=== PATIENT | female | born 1945 | race Caucasian/White ===

== ENCOUNTER → 2023-06-29 | Outpatient (CLI) | payer MEDICARE ==
[~2023-06-29] MED LIST: ATORVASTATIN CA20 MG PO; CEPH500 PO; ELIQUIS5 M3 PO; FURO80 PO; IRON18 MG PO; METO100ER PO; PANTOPRAZOLE SO40 M2 PO; SPIRONOLACTONE50 MG PO; Vitamin C100 M1 PO
[2023-06-30 09:26] LABS: Bacterial Vaginosis PCR Negative (NEGATIVE); Candida Group, PCR NOT DETECTED (NOT DETECT); Candida glabrata-krusei, PCR NOT DETECTED (NOT DETECT)
== END | disposition home or self-care (01) ==
LOC: LAB EV 18:52 → LAB SHORT 18:52
PROVIDERS: Family Medicine
DX: B37.2 Candidiasis of skin and nail (principal)
CPT/HCPCS: 87481; 87661; 87801

== ENCOUNTER 2024-05-29 09:46 | Emergency (ER) | payer MEDICARE ==
[~2024-05-29] VITALS: Ht 167.6 cm; Wt 147.4 kg
[2024-05-29 10:04] VITALS: BP 116/76
== END 2024-05-29 13:24 | disposition home or self-care (01) ==
LOC: ER 09:46
DX: I89.0 Lymphedema, not elsewhere classified (principal); Z79.01 Long term (current) use of anticoagulants; Z79.899 Other long term (current) drug therapy; Z59.89 Other problems related to housing and economic circumstances
CPT/HCPCS: 99283

== ENCOUNTER 2024-06-08 09:18 | Inpatient (IN) | payer MEDICARE ==
[2024-06-08] VITALS (29 sets, daily range): BP systolic 62–213; BP diastolic 30–183
[~2024-06-08] VITALS: Ht 167.6 cm; Wt 141.0 kg
[~2024-06-08 09:18] MED LIST changes: +SPIR25 PO; -SPIRONOLACTONE50 MG PO
[2024-06-08] MEDS ORDERED: Clindamycin 600mg in D5W 50 ML IV ONE (09:35)
[2024-06-08] MEDS ORDERED: NS 500 ML IV SCH (09:40)
[2024-06-08] MEDS ORDERED: Ipratropium/Albuterol SulF 2.5-0.5MG/3 ML Amp INH PRN (09:45)
[2024-06-08 09:53] LABS: Base Excess Venous -0.3 mmol/L; Bicarbonate Venous 23.3 mmol/L (24.0-30.0); PCO2 Venous 47.4 mmHg (38-42); pH Blood Venous 7.34 (7.34-7.37)
[2024-06-08 10:01] LABS: Hematocrit 38.9 % (33.0-51.0); Hemoglobin 12.4 g/dL (11.5-16.0); Mean Corpuscular HGB 33.2 pg (26.0-34.0); Mean Corpuscular HGB Conc 31.9 g/dL (31.5-36.5); Mean Corpuscular Volume 104 fL (80-100); Platelet Count 140 K/mm3 (150-400); RDW Coefficient Variation 12.8 % (11.7-14.2); RDW Standard Deviation 49.4 fL (35.1-46.3); Red Blood Cell Count 3.74 M/mm3 (3.80-5.20); White Blood Cell Count 2.77 K/mm3 (4.00-11.30)
[2024-06-08 10:16] LABS: Albumin, Blood 3.1 g/dL (3.4-5.0); Albumin/Globulin Ratio 0.9 (0.8-1.8); Bilirubin, Total 1.1 mg/dL (0.1-1.0); Bun/Creatinine Ratio 19.4 (12.0-20.0); Calcium, Blood 9.2 mg/dL (8.5-10.1); Creatinine, Blood 2.17 mg/dL (0.40-1.00); Globulin, Blood 3.3 g/dL (2.2-4.0); Magnesium, Blood 2.2 mg/dL (1.6-2.4); Phosphorus, Blood 2.6 mg/dL (2.5-4.9); Potassium, Blood 4.6 mmol/L (3.5-5.5); Total Protein, Blood 6.4 g/dL (6.4-8.2)
[2024-06-08] MEDS ORDERED: NS 1,150 ML IV SCH (10:35)
[2024-06-08 10:54] LABS: Source, Urine Foley catheter
[2024-06-08 10:59] LABS: CORONAVIRUS COVID-19 AG Negative (NEGATIVE); INFLUENZA A AG Negative (NEGATIVE); INFLUENZA B AG Negative (NEGATIVE)
[2024-06-08 11:03] LABS: BAND PERCENT MAN 63 % (0-8); BASOPHILS PERCENT MAN 0 % (0-2); EOSINOPHILS PERCENT MAN 0 % (0-6); LYMPHOCYTES ABSOLUTE MAN 0.08 K/mm3 (0.84-5.20); LYMPHOCYTES PERCENT MAN 3 % (21-46); METAMYELOCYTE PERCENT MAN 11 % (0-0); MONOCYTES ABSOLUTE MAN 0.05 K/mm3 (0.16-1.47); MONOCYTES PERCENT MAN 2 % (4-13); NEUTROPHILS ABSOLUTE MAN 2.32 K/mm3 (1.96-9.15); SEG NEUTROPHILS PERCENT MAN 21 % (41-73); TOTAL CELLS COUNTED 100
[2024-06-08 11:06] LABS: Bilirubin, Urine Neg (Neg); Blood, Urine 1+ (Neg); Glucose Qualitative, Urine Neg (Neg); Ketones, Urine Neg (Neg); Leukocyte Esterase, Urine 1+ (Neg); Nitrite, Urine Neg (Neg); Protein, Urine 2+ (Neg); Specific Gravity, Urine 1.015 (1.003-1.022); Urobilinogen, Urine NORM (Normal)
[2024-06-08] MEDS ORDERED: KLOR-CON M1010 MEQ PO (11:14)
[2024-06-08 11:21] LABS: Appearance, Urine Hazy (Clear); Bacteria Few /hpf; Color, Urine Yellow (P-Yellow); Red Blood Cells, Urine 0-2 /hpf (0-2); Squamous Epithelial Cells Mod /hpf (Few)
[2024-06-08] MEDS ORDERED: FLU VACC TS2024-25(6MOS UP)/PF 45 MCG/0.5 ML SYRINGE IM PRN (11:35)
[2024-06-08] MEDS ORDERED: Vancomycin HCL 2,000 MG in NS 500 ML IV ONE (11:45)
[2024-06-08] MEDS ORDERED: Piperacillin/Tazobactam Sod 3.375 GM in NS 100 ML IV SCH (12:00)
[2024-06-08] MEDS ORDERED: Piperacillin/Tazobactam Sod 2.25 GM in NS 50 ML IV SCH (12:00)
[2024-06-08] MEDS ORDERED: Methyl Salicylate/Menth/Camph 57 GM TUBE TOP PRN (13:10)
[2024-06-08] MEDS ORDERED: Vasopressin 20 UNITS in NS 100 ML IV SCH (13:45)
--- NOTE | 2024-06-08 15:00 | NUR ---
ARRIVAL TO ICU PT BROUGHT TO ICU 14 AT THIS TIME. PT RECEIVING LEVOPHED 15MCG/MIN AND VASOPRESSIN 0.04UNITS/MIN. SHE IS A&OX3. REPETITIVE AT TIMES. SHE IS ON 4L NC WITH SPO2 >93%. PT APPEARS TO HAVE INCREASED WORK OF BREATHING BUT PT DENIES SOB. C/O CHRONIC L SHOULDER PAIN. AFIB ON MONITOR WITH RATE IN 90S-100S. MAP LABILE BETWEEN 40S-60S. STRONG RADIAL PULSES. DOPPLER PEDAL PULSES. LEGS ARE EDEMATOUS, REDDENED. BILAT TOES COOL TO TOUCH WITH DUSKY APPEARANCE. PT STS SHE HAD A PRIOR HOSPITALIZATION YEARS AGO FOR CELLULITIS. PT HAS REDDENED AREAS ACROSS ABDOMEN, BACK AND THIGHS. AREA OUTLINED. PHOTOS IN CHART. BED IN LOW POSITION, CALL LIGHT WITHIN REACH.
[2024-06-08] MEDS ORDERED: Acetaminophen325 M1 PO (17:04)
[2024-06-08] MEDS ORDERED: ALEVAZOL56.7 G1 TOP (17:07)
[2024-06-08] MEDS ORDERED: BISA10S PR (17:07)
[2024-06-08] MEDS ORDERED: HYDROmorphone HCl/Pf 1MG SYR ONE (17:28)
[2024-06-08] MEDS ORDERED: HYDROmorphone HCl/Pf 1MG SYR IV ONE (17:35)
[2024-06-08] MEDS ORDERED: Acetaminophen 500 MG Tab PO PRN (18:10)
[2024-06-08] MEDS ORDERED: NS 250 ML IV PRN (18:15)
[2024-06-08] MEDS ORDERED: Vancomycin HCL 1,750 MG in NS 500 ML IV ONE (18:25)
[2024-06-08] MEDS ORDERED: Lactobacil 2-S.Thermo-Bifido 1 1 Cap PO SCH (21:00)
[2024-06-08] MEDS ORDERED: Apixaban 5 MG Tab PO SCH (21:00)
--- NOTE | 2024-06-08 22:00 | NUR ---
ASSUMED CARE AT 1900 PT LAYING IN BED SLEEPING AT SHIFT CHANGE. SHE IS A/O X3-4; SHE EASILY FALLS ASLEEP DURING CONVERSATION BUT IS ORIENTED TO SELF, PLACE, AND FOLLOWS DIRECTIONS; SHE IS SLOW TO RESPOND AND SOFT SPOKEN. SPO2 >95% ON 3L NC. AFIB NOTED WITH RATE 80-100'S; BP SUPPORTED WITH LEVOPHED INFUSING AT 21MCG/MIN AND VASOPRESSIN INFUSING AT 0.04UNITS/MIN. MINIMAL APPETITE. NIXON IN PLACE AND DRAINING TO GRAVITY. RLE VERY LARGE, RED AND HOT TO TOUCH. PT TURNS ARE PAINFUL. CENTRAL LINE TO RIJ PATENT WITH DRESSING C/D/I. SEE SHIFT ASSESSMENT FOR FULL ASSESSMENT.
[2024-06-09] VITALS (75 sets, daily range): BP systolic 61–203; BP diastolic 17–171
[2024-06-09] MEDS ORDERED: FentaNYL Citrate 50 MCG/ML 2 ML Injection IV PRN (02:55)
[2024-06-09] MEDS ORDERED: LIDO700A20 TOP (03:01)
[2024-06-09] MEDS ORDERED: DULCOLAX400 MG/5 M PO (03:12)
[2024-06-09] MEDS ORDERED: MIRALAX17 GM PO (03:13)
[2024-06-09] MEDS ORDERED: NYSTRIT TOP (03:15)
[2024-06-09] MEDS ORDERED: TORSE20 PO (03:17)
[2024-06-09 04:19] LABS: Hematocrit 39.8 % (33.0-51.0); Hemoglobin 12.8 g/dL (11.5-16.0); Mean Corpuscular HGB 33.2 pg (26.0-34.0); Mean Corpuscular HGB Conc 32.2 g/dL (31.5-36.5); Mean Corpuscular Volume 103 fL (80-100); Mean Platelet Volume 11.9 fL (9.1-12.4); Platelet Count 123 K/mm3 (150-400); RDW Coefficient Variation 12.9 % (11.7-14.2); RDW Standard Deviation 48.9 fL (35.1-46.3); Red Blood Cell Count 3.86 M/mm3 (3.80-5.20); White Blood Cell Count 7.78 K/mm3 (4.00-11.30)
[2024-06-09 04:34] LABS: International Normalized Ratio 1.35; Prothrombin Time Results 14.1 Sec (9.7-11.5)
[2024-06-09 04:47] LABS: Alanine Aminotransfer (ALT/SGP 32 U/L (12-78); Albumin, Blood 2.8 g/dL (3.4-5.0); Albumin/Globulin Ratio 0.9 (0.8-1.8); Alk Phos 40 U/L (50-136); Anion Gap 15 mmol/L (3-11); Aspartate Aminotrans (AST/SGOT 53 U/L (12-37); Bilirubin, Total 1.1 mg/dL (0.1-1.0); Blood Urea Nitrogen 48 mg/dL (8-24); Bun/Creatinine Ratio 25.5 (12.0-20.0); CO2, Blood 23 mmol/L (21-32); Calcium, Blood 8.1 mg/dL (8.5-10.1); Chloride, Blood 101 mmol/L (98-108); Creatinine, Blood 1.88 mg/dL (0.40-1.00); Globulin, Blood 3.1 g/dL (2.2-4.0); Glomerular Filtration Rate 27 (60-); Glucose, Blood 90 mg/dL (70-99); Magnesium, Blood 1.8 mg/dL (1.6-2.4); Phosphorus, Blood 4.8 mg/dL (2.5-4.9); Potassium, Blood 5.1 mmol/L (3.5-5.5); Sodium, Blood 134 mmol/L (136-145); Total Protein, Blood 5.9 g/dL (6.4-8.2); Vancomycin, Random 21.4 ug/mL
[2024-06-09 05:17] LABS: BAND PERCENT MAN 44 % (0-8); BASOPHILS PERCENT MAN 0 % (0-2); EOSINOPHILS PERCENT MAN 0 % (0-6); METAMYELOCYTE ABSOLUTE MAN 0.46 K/mm3 (0.00-0.00); METAMYELOCYTE PERCENT MAN 6 % (0-0); MONOCYTES ABSOLUTE MAN 0.46 K/mm3 (0.16-1.47); MONOCYTES PERCENT MAN 6 % (4-13); MYELOCYTE ABSOLUTE MAN 0.38 K/mm3 (0.00-0.00); MYELOCYTE PERCENT MAN 5 % (0-0); NEUTROPHILS ABSOLUTE MAN 6.45 K/mm3 (1.96-9.15); SEG NEUTROPHILS PERCENT MAN 39 % (41-73); TOTAL CELLS COUNTED 100
--- NOTE | 2024-06-09 06:39 | NUR ---
END OF SHIFT SUMMARY PT DID NOT SLEEP WELL DURING THE NIGHT. SHE CONT TO BE A/O X3-4; SHE DID NOT USE HER CALL LIGHT AND WOULD CRY OUT AT TIMES. PAIN CHALLENGING TO CONTROL; CALL MADE TO HOSPITALIST WHO PROVIDED ORDERS FOR PRN FENTANYL; PRN HELPFUL FOR SHOULDER AND HIP PAIN. MAX TEMP 101; TYLENOL GIVEN AND HELPFUL. SPO2 >90% ON 4-5L EITHER NC OR OXYMASK (USED WHILE SLEEPING). HR 90-110. SBP AND MAP LABILE; LEVOPHED HIGH 22MCG/MIN OR LOW 10MCG/MIN; VASOPRESSIN INFUSING AT 0.04UNITS/MIN. TOLERATING SMALL SIPS OF WATER. NIXON IN PLACE AND DRAINING TO GRAVITY. NO CHANGES TO WOUNDS. RIJ PATENT WITH DRESSING C/D/I. WILL REPORT TO AM RN WHEN AVAILALBE.
[2024-06-09] MEDS ORDERED: Enoxaparin 40 MG/0.4 ML SYR SC SCH (09:00)
[2024-06-09] MEDS ORDERED: Arginine/Glutamine/Calcium Hmb 1 Packet PO SCH (09:00)
[2024-06-09] MEDS ORDERED: Metoprolol Succinate 50 MG TABCR PO SCH (09:00)
[2024-06-09] MEDS ORDERED: Mag Sulfate 1 GM/D5% 100ML 100 ML IV STA (09:04)
[2024-06-09] MEDS ORDERED: NS 1,000 ML IV SCH (09:05)
--- NOTE | 2024-06-09 17:27 | NUR ---
SHIFT SUMMARY NO ACUTE CHANGES THIS SHIFT. PT HAS REMAINED AWAKE AND ALERT MOST OF THIS SHIFT. PT AWAKENS EASILY TO VERBAL STIMULI WHEN RESTING. PT IS ABLE TO ANSWER MOST QUESTIONS APPROPRIATELY. PT IS FORGETFUL AT TIMES NEEDING REDIRECTION. PT WITH POOR APPETITE THIS SHIFT, BUT IS ABLE TO TAKE PO MEDS AND SMALL SIPS OF FLUIDS. CENTRAL LINE TO RIJ C/D/I. PT BP REMAINS HYPOTENSIVE AND LABILE. LEVOPHED INFUSING AT 24 MCG/MIN AND VASOPRESSIN 0.04 UNITS/MIN. NS INFUSING AT 125 ML/HR. NIXON REMAINS IN PLACE WITH DARK YELLOW URINE OUPUT NOTED. PT WITH MULTIPLE INCONTINENT BM'S THIS SHIFT. RASH/CELLULITIS TO ABDOMEN AND RIGHT LEG REMAINS UNCHANGED. PT WITH DIFFUSE EXCORIATIONS TO GROIN/LUIS AREA AND COCCYX, BUT NO STAGEABLE PRESSURE INJURY NOTED AT THIS TIME. WOUND PHOTOS IN CHART. DR CHANDLER AWARE. NO FAMILY CALLS OR VISITS THIS SHIFT. WILL CONTINUE TO MONITOR AND REPORT OFF TO ONCOMING RN.
[2024-06-09] MEDS ORDERED: NS 500 ML IV SCH (18:00)
[2024-06-09 18:44] LABS: Base Excess Venous -4.6 mmol/L; Bicarbonate Venous 20.3 mmol/L (24.0-30.0); PCO2 Venous 48.4 mmHg (38-42); pH Blood Venous 7.27 (7.34-7.37)
[2024-06-09] MEDS ORDERED: [UNRECOGNIZED DRUG - OTHER] TOP (20:26)
[2024-06-09] MEDS ORDERED: LOPE2C PO (20:37)
[2024-06-09] MEDS ORDERED: Ondansetron HCl 2 MG / ML 2ML Vial IV PRN (20:55)
[2024-06-10] VITALS (77 sets, daily range): BP systolic 74–128; BP diastolic 42–92
[2024-06-10 03:20] LABS: Hematocrit 36.7 % (33.0-51.0); Mean Corpuscular HGB 33.8 pg (26.0-34.0); Mean Corpuscular HGB Conc 32.7 g/dL (31.5-36.5); Mean Corpuscular Volume 103 fL (80-100); NRBC ABSOLUTE 0.02 K/mm3 (0.00-0.02); NRBC Auto 0.1 /100 WBC (0.0-0.2); Platelet Count 105 K/mm3 (150-400); RDW Standard Deviation 49.4 fL (35.1-46.3); Red Blood Cell Count 3.55 M/mm3 (3.80-5.20)
[2024-06-10 03:46] LABS: Albumin, Blood 2.4 g/dL (3.4-5.0); Albumin/Globulin Ratio 0.8 (0.8-1.8); Bilirubin, Total 1.4 mg/dL (0.1-1.0); Bun/Creatinine Ratio 31.1 (12.0-20.0); Calcium, Blood 7.8 mg/dL (8.5-10.1); Creatinine, Blood 1.67 mg/dL (0.40-1.00); Globulin, Blood 3.1 g/dL (2.2-4.0); Magnesium, Blood 2.2 mg/dL (1.6-2.4); Potassium, Blood 4.6 mmol/L (3.5-5.5); Total Protein, Blood 5.5 g/dL (6.4-8.2)
[2024-06-10 03:52] LABS: BAND PERCENT MAN 27 % (0-8); BASOPHILS PERCENT MAN 0 % (0-2); EOSINOPHILS PERCENT MAN 0 % (0-6); LYMPHOCYTES % ATYPICAL MANUAL 1 % (0-0); LYMPHOCYTES ABSOLUTE MAN 0.48 K/mm3 (0.84-5.20); LYMPHOCYTES PERCENT MAN 2 % (21-46); METAMYELOCYTE ABSOLUTE MAN 0.16 K/mm3 (0.00-0.00); METAMYELOCYTE PERCENT MAN 1 % (0-0); MONOCYTES ABSOLUTE MAN 0.48 K/mm3 (0.16-1.47); MONOCYTES PERCENT MAN 3 % (4-13); NEUTROPHILS ABSOLUTE MAN 15.15 K/mm3 (1.96-9.15); SEG NEUTROPHILS PERCENT MAN 66 % (41-73); TOTAL CELLS COUNTED 100
--- NOTE | 2024-06-10 05:14 | NUR ---
SHIFT SUMMARY PT A/OX2-3, INTERMITTENT CONFUSION. ANSWERS MOST QUESTIONS APPROPRIATLY. MUMBLED SPEECH. ON 4L NC, SATS > 94%. L/S CLEAR T/O. ON MATERIAL FLOW ANALYST, AFIB W/ HR 110-120'S. DENIES CP/PRESSURE. BP SOFT AND LABILE, LEVO AND VASO INFUSING TO RIJ. MAPS IN THE 60'S. NIXON DRAINING TO GRAVITY. BM X2 THIS SHIFT, STOOL SAMPLE SENT TO LAB. CHG BATH DONE. PT HAS BEEN PAINFUL THIS SHIFT, TYLENOL AND FENT PUSHES GIVEN PER EMAR W/ SOME RELIEF. NO ACUTE EVENTS THIS SHIFT. CALL LIGHT IN REACH.
[2024-06-10] MEDS ORDERED: NS 1,000 ML IV SCH (07:00)
[2024-06-10] MEDS ORDERED: Vancomycin HCL 1,500 MG in NS 250 ML IV SCH (07:00)
[2024-06-10 07:10] LABS: Vancomycin, Random 12.2 ug/mL
[2024-06-10 08:18] LABS: Base Excess Venous -6.9 mmol/L; Bicarbonate Venous 18.5 mmol/L (24.0-30.0); PCO2 Venous 51.6 mmHg (38-42); pH Blood Venous 7.22 (7.34-7.37)
[2024-06-10 09:00] LABS: Albumin, Blood 2.4 g/dL (3.4-5.0); Anion Gap 12 mmol/L (3-11); Blood Urea Nitrogen 48 mg/dL (8-24); Bun/Creatinine Ratio 31.2 (12.0-20.0); CO2, Blood 21 mmol/L (21-32); Calcium, Blood 8.1 mg/dL (8.5-10.1); Chloride, Blood 107 mmol/L (98-108); Creatinine, Blood 1.54 mg/dL (0.40-1.00); Glomerular Filtration Rate 34 (60-); Glucose, Blood 72 mg/dL (70-99); Phosphorus, Blood 4.6 mg/dL (2.5-4.9); Potassium, Blood 4.4 mmol/L (3.5-5.5); Sodium, Blood 136 mmol/L (136-145)
[2024-06-10 12:00] LABS: C DIFFICILE DNA NEGATIVE (Negative)
[2024-06-10] MEDS ORDERED: Piperacillin/Tazobactam Sod 3.375 GM in NS 100 ML IV SCH (12:00)
[2024-06-10 14:10] LABS: Base Excess Venous -6.7 mmol/L; Bicarbonate Venous 19.1 mmol/L (24.0-30.0); PCO2 Venous 43.1 mmHg (38-42); pH Blood Venous 7.28 (7.34-7.37)
[2024-06-10 14:13] LABS: Albumin, Blood 2.5 g/dL (3.4-5.0); Anion Gap 15 mmol/L (3-11); Blood Urea Nitrogen 48 mg/dL (8-24); Bun/Creatinine Ratio 36.1 (12.0-20.0); CO2, Blood 18 mmol/L (21-32); Calcium, Blood 8.3 mg/dL (8.5-10.1); Chloride, Blood 108 mmol/L (98-108); Creatinine, Blood 1.33 mg/dL (0.40-1.00); Glomerular Filtration Rate 41 (60-); Glucose, Blood 72 mg/dL (70-99); Phosphorus, Blood 4.4 mg/dL (2.5-4.9); Potassium, Blood 4.3 mmol/L (3.5-5.5); Sodium, Blood 137 mmol/L (136-145)
--- NOTE | 2024-06-10 17:22 | NUR ---
SHIFT SUMMARY PT HAS REMAINED ON BIPAP MOST OF THIS SHIFT. PT AWAKENS EASILY TO VERBAL STIMULI. PT IS ABLE TO ANSWER MOST QUESTIONS, BUT GETS SOB EASILY WHEN SPEAKING. PT DROWSEY THIS AFTERNOON. PT NPO DUE TO INCREASED SOB. BIPAP SETTINGS 02/19, FIO2 30%. CENTRAL LINE TO RIJ C/D/I. LEVOPHED INFUSING AT 26 MCG/MIN, NS 125 ML/HR, AND NS TKO. VASOPRESSIN ON STANDBY PER DR CHANDLER. NIXON TEMP PROBE REMAINS IN PLACE WITH YELLOW URINE OUTPUT NOTED. WOUNDS REMAIN UNCHANGED. HR REMAINS AFIB 110-120'S. BP LABILE. NO FAMILY AT BEDSIDE. PT SUSHANT MCMANUS UPDATED VIA PHONE. WILL CONTINUE TO MONITOR AND REPORT OFF TO ONCOMING RN.
[2024-06-10 18:19] LABS: Base Excess Venous -5.7 mmol/L; Bicarbonate Venous 19.8 mmol/L (24.0-30.0); PCO2 Venous 38.8 mmHg (38-42); pH Blood Venous 7.33 (7.34-7.37)
[2024-06-10 18:51] LABS: Albumin, Blood 2.3 g/dL (3.4-5.0); Anion Gap 12 mmol/L (3-11); Blood Urea Nitrogen 50 mg/dL (8-24); Bun/Creatinine Ratio 33.8 (12.0-20.0); CO2, Blood 21 mmol/L (21-32); Calcium, Blood 8.3 mg/dL (8.5-10.1); Chloride, Blood 107 mmol/L (98-108); Creatinine, Blood 1.48 mg/dL (0.40-1.00); Glomerular Filtration Rate 36 (60-); Glucose, Blood 60 mg/dL (70-99); Phosphorus, Blood 3.8 mg/dL (2.5-4.9); Sodium, Blood 136 mmol/L (136-145)
[2024-06-10] MEDS ORDERED: D5W-1/2NS 1,000 ML IV SCH (19:20)
[2024-06-11] VITALS (80 sets, daily range): BP systolic 65–133; BP diastolic 34–84
[2024-06-11 04:05] LABS: Hematocrit 35.6 % (33.0-51.0); Hemoglobin 11.7 g/dL (11.5-16.0); Mean Corpuscular HGB 33.6 pg (26.0-34.0); Mean Corpuscular HGB Conc 32.9 g/dL (31.5-36.5); Mean Corpuscular Volume 102 fL (80-100); Mean Platelet Volume 12.6 fL (9.1-12.4); NRBC ABSOLUTE 0.02 K/mm3 (0.00-0.02); NRBC Auto 0.1 /100 WBC (0.0-0.2); Platelet Count 69 K/mm3 (150-400); RDW Coefficient Variation 13.2 % (11.7-14.2); RDW Standard Deviation 48.7 fL (35.1-46.3); Red Blood Cell Count 3.48 M/mm3 (3.80-5.20); White Blood Cell Count 22.32 K/mm3 (4.00-11.30)
[2024-06-11 04:29] LABS: Albumin, Blood 2.2 g/dL (3.4-5.0); Albumin/Globulin Ratio 0.8 (0.8-1.8); BAND PERCENT MAN 5 % (0-8); BASOPHILS PERCENT MAN 0 % (0-2); Bilirubin, Total 2.1 mg/dL (0.1-1.0); Bun/Creatinine Ratio 34.3 (12.0-20.0); Calcium, Blood 7.9 mg/dL (8.5-10.1); Creatinine, Blood 1.34 mg/dL (0.40-1.00); EOSINOPHILS PERCENT MAN 0 % (0-6); Globulin, Blood 2.9 g/dL (2.2-4.0); LYMPHOCYTES ABSOLUTE MAN 0.44 K/mm3 (0.84-5.20); LYMPHOCYTES PERCENT MAN 2 % (21-46); METAMYELOCYTE ABSOLUTE MAN 0.22 K/mm3 (0.00-0.00); METAMYELOCYTE PERCENT MAN 1 % (0-0); MONOCYTES ABSOLUTE MAN 1.33 K/mm3 (0.16-1.47); MONOCYTES PERCENT MAN 6 % (4-13); NEUTROPHILS ABSOLUTE MAN 20.31 K/mm3 (1.96-9.15); Phosphorus, Blood 2.5 mg/dL (2.5-4.9); Potassium, Blood 3.6 mmol/L (3.5-5.5); SEG NEUTROPHILS PERCENT MAN 86 % (41-73); TOTAL CELLS COUNTED 100; Total Protein, Blood 5.1 g/dL (6.4-8.2)
--- NOTE | 2024-06-11 05:05 | NUR ---
SHIFT SUMMARY PT IS A/OX2, EPISODES OF CONFUSION AND HALLUCINATIONS T/O SHIFT. PROVIDER AWARE OF PTS AMS. VERBALLY REDIRECTABLE. ON BIPAP, SATS > 94%. L/S CLEAR AND DIM T/O. ON LAW SECRETARY, AFIB W/ HR OF 110-120'S, BP SOFT AND LABILE, TITRATING LEVO TO MAP GOAL OF > 65. GTT INFUSING TO RIJ. VASO HAS REMAINED OFF THIS SHIFT. NO BM'S THIS SHIFT. TEMP NIXON DRAINING TO GRAVITY W/ OK UOP. PT HAD CBG OF 60 EARLIER THIS SHIFT, PROVIDER NOTIFIED AND FLUIDS WERE SWITCHED TO D5 1/2 NS AT 150 ML/H. CBG WAS CHECKED LATER AND HAD A RESULT OF 61. FLUIDS WERE INCREASED TO 200 ML/H W/ IMPROVEMENT IN BLOOD SUGAR > 70. NO OTHER ACUTE EVENTS THIS SHIFT.
[2024-06-11] MEDS ORDERED: Potassium Phosphate Dibasic 15 MM in Dextrose 5% 250 ML IV STA (07:06)
--- NOTE | 2024-06-11 07:31 | NUR ---
[place] of care: Alert & oriented to self. In atrial fib in 120s on monitor. Levo gtt infusing at 14 mcgs/min. Weaned from BiPAP to 4L NC per Dr. Almeida so that he can discuss goals of care. Redness/swelling to bilat LE. D51/2 NS infusing at 200 cc/hr. Will continue to monitor.
[2024-06-11] MEDS ORDERED: Furosemide 10 MG / ML 2ML Vial IV SCH (08:00)
[2024-06-11] MEDS ORDERED: Morphine Sulfate 10 MG/ML 1MLSYR IV PRN (10:50)
[2024-06-11] MEDS ORDERED: NS 250 ML IV PRN (11:50)
[2024-06-11] MEDS ORDERED: Lactated Ringer's 500 ML IV SCH (13:50)
[2024-06-11] MEDS ORDERED: DEXTROSE 5% IV SCH (16:00)
[2024-06-11] MEDS ORDERED: PENICILLIN POTASSIUM IV SCH (16:00)
[2024-06-11] MEDS ORDERED: Hydrocortisone Sod Succinate 100 MG Vial IV SCH (16:00)
--- NOTE | 2024-06-11 17:15 | NUR ---
DISCUSSED CASE WITH BEDSIDE RN AND DR. CHANDLER. DR. CHANDLER HAD ATTEMPTED TO CONTACT FAMILY. POOR PROGNOSIS AND WILL CONTINUE GOALS OF CARE CONVERSATION AND PROVIDE SUPPORT NEEDED.
--- NOTE | 2024-06-11 17:25 | NUR ---
Called Dr. Almeida at 17:07 - blood glucose is 158 - D51/2NS gtt currently infusing at 125cc/hr - left a message asking if he'd like to titrate this down. Will await call back.
[2024-06-12] VITALS (63 sets, daily range): BP systolic 72–135; BP diastolic 47–79
[2024-06-12 03:59] LABS: Hematocrit 35.4 % (33.0-51.0); Hemoglobin 11.5 g/dL (11.5-16.0); Mean Corpuscular HGB 33.1 pg (26.0-34.0); Mean Corpuscular HGB Conc 32.5 g/dL (31.5-36.5); Mean Corpuscular Volume 102 fL (80-100); RDW Coefficient Variation 13.4 % (11.7-14.2); RDW Standard Deviation 49.9 fL (35.1-46.3); Red Blood Cell Count 3.47 M/mm3 (3.80-5.20); White Blood Cell Count 41.83 K/mm3 (4.00-11.30)
[2024-06-12 04:05] LABS: BASOPHILS ABSOLUTE AUTO 0.02 K/mm3 (0.00-0.23); BASOPHILS PERCENT AUTO 0 % (0-2); EOSINOPHILS ABSOLUTE AUTO 0.01 K/mm3 (0.00-0.68); EOSINOPHILS PERCENT AUTO 0 % (0-6); IMMATURE GRAN ABSOLUTE AUTO 3.39 K/mm3 (0.00-0.10); IMMATURE GRAN PERCENT AUTO 8 % (0-1); LYMPHOCYTES ABSOLUTE AUTO 1.86 K/mm3 (0.84-5.20); LYMPHOCYTES PERCENT AUTO 4 % (21-46); MONOCYTES ABSOLUTE AUTO 2.43 K/mm3 (0.16-1.47); MONOCYTES PERCENT AUTO 6 % (4-13); Mean Platelet Volume 13.2 fL (9.1-12.4); NEUTROPHILS ABSOLUTE AUTO 34.12 K/mm3 (1.96-9.15); NEUTROPHILS PERCENT AUTO 82 % (41-73); Platelet Count 48 K/mm3 (150-400)
[2024-06-12 04:16] LABS: Albumin/Globulin Ratio 0.7 (0.8-1.8); Bilirubin, Total 1.8 mg/dL (0.1-1.0); Bun/Creatinine Ratio 34.8 (12.0-20.0); Calcium, Blood 8.5 mg/dL (8.5-10.1); Creatinine, Blood 1.12 mg/dL (0.40-1.00); Magnesium, Blood 1.7 mg/dL (1.6-2.4); Phosphorus, Blood 2.7 mg/dL (2.5-4.9); Potassium, Blood 3.4 mmol/L (3.5-5.5)
[2024-06-12] MEDS ORDERED: Potassium Chl 20MEQ/Water100ML 100 ML IV ONE (05:20)
--- NOTE | 2024-06-12 05:23 | NUR ---
SHIFT SUMMARY PT A/OX2 W/ OCCASSIONAL EPISODES OF CONFUSION AND HALLUCINATIONS FOR THE LAST FEW DAYS. VERBALLY REDIRECTABLE. MORE LETHARGIC THIS SHIFT. ON BIPAP ALL OF THIS SHIFT, TOLERATING WELL. SATS > 94%. ON HEALTH COMMUNICATIONS SPECIALIST, AFIB HR 90-120'S, MAPS > 65. LEVO AND VASO INFUSING TO RIJ. NIXON DRAINING W/ GOOD UOP. NO BM THIS SHIFT. BLE ARE VERY SWOLLEN, RLL IS RED AND WEEPING. DRY FLOW IN PLACE. PT HAS MULTIPLE AREAS OF INTACT AND OPEN BLISTERS THAT ARE WEEPING. DRY FLOWS IN PLACE. PAINFUL WITH TURNS, MEDICATED WITH PRNS ON JUL. NO ACUTE EVENTS THIS SHIFT.
[2024-06-12] MEDS ORDERED: Furosemide 10 MG/ML 4ML Vial IV ONE (08:00)
[2024-06-12 12:32] LABS: Albumin, Blood 1.8 g/dL (3.4-5.0); Anion Gap 10 mmol/L (3-11); Blood Urea Nitrogen 38 mg/dL (8-24); CO2, Blood 20 mmol/L (21-32); Calcium, Blood 8.4 mg/dL (8.5-10.1); Chloride, Blood 112 mmol/L (98-108); Glomerular Filtration Rate 58 (60-); Glucose, Blood 170 mg/dL (70-99); Phosphorus, Blood 2.2 mg/dL (2.5-4.9); Potassium, Blood 3.4 mmol/L (3.5-5.5); Sodium, Blood 139 mmol/L (136-145)
[2024-06-12] MEDS ORDERED: Acetaminophen 160MG / 5ML 10.15 UDC PO PRN (15:55)
[2024-06-12] MEDS ORDERED: Ondansetron HCl 2 MG / ML 2ML Vial IV PRN (15:55)
[2024-06-12] MEDS ORDERED: Haloperidol Lactate Inj. 5 MG/ML Injection IV PRN (16:00)
[2024-06-12] MEDS ORDERED: Atropine Sulfate 1% Opth Soln 2ML BTL SL PRN (16:00)
[2024-06-12] MEDS ORDERED: Acetaminophen 650 MG Supp PR PRN (16:00)
[2024-06-12] MEDS ORDERED: HYDROmorphone HCl/Pf 1MG SYR IV PRN (16:00)
[2024-06-12] MEDS ORDERED: Scopolamine Hydrobromide Patch TOP PRN (16:00)
[2024-06-12] MEDS ORDERED: Morphine Sulfate 10 MG/ML 1MLSYR IV PRN (16:05)
[2024-06-12] MEDS ORDERED: Morphine Sulfate 20 MG/1ML 1 ML Oral Syringe SL PRN (16:05)
[2024-06-12] MEDS ORDERED: LORazepam 2 MG/ML 1ML Injection IV PRN (16:05)
[2024-06-12] MEDS ORDERED: LORazepam 1 MG Tab PO PRN (16:05)
--- NOTE | 2024-06-12 16:08 | NUR ---
DR. CHANDLER DISCUSSED PATIENTS POOR PROGNOSIS WITH PATIENT AND HER NEICE. PATIENT IS AGREEABLE TO TRANSITION TO COMFORT MEASURES AFTER A PREIST HAS READ HER LAST RIGHTS. CALLS PLACE TO COORDINATE PREIST COMING IN. FILM REPLACEMENT ORDERER UPDATED THAT PREIST WAS IN HOUSE. I UPDATED DR. CHANDLER. COMFORT MEASURES PLACED.
--- NOTE | 2024-06-12 17:34 | NUR ---
SHIFT SUMMARY PT IN BED, NOT RESPONDING TO VERBAL COMMAND, OCCASIONALLY MOVING UPPER EXTREMITIES, PULLING AT CORDS. MOANING OUT WITH ANY MOVEMENT BUT NOT RESPONDING VERBALLY. COPIOUS AMNT OF PURULENT DRAINAGE FROM BLISTERS ON BACK AND LEGS. ON BIPAP FOR MOST OF THE DAY, TAKEN OFF AT 1700 FOR COMFORT CARE TRANSITION. ALL MEDICATIONS STOPPED AT 1700. TAYLOR MCMANUS HAD LONG CONVERSATION WITH DR. CHANDLER REGARDING PLANS OF CARE THIS EVENING.
[2024-06-12] MEDS ORDERED: Clotrimazole-Be15 GM TOP (20:02)
[2024-06-12] MEDS ORDERED: CLOBETASOL EMOL15 G1 TOP (20:02)
--- NOTE | 2024-06-12 20:08 | NUR ---
ASSUMPTION OF CARE: ASSUMED CARE OF PT AT 1910. PT COMFORT CARE. RESPONDS TO PAINFUL STIMULI, DOES NOT FOLLOW COMMANDS OR MAKE ANY PURPOSEFUL MOVEMENTS. PT GRIMACES AND MOANS AT TIMES WITH MOVEMENT. MEDICATED PER EMAR FOR PAIN AND APPEARS COMFORTABLE CURRENTLY. PT ON RA. SPO2 LOW 90'S. RR 9-10. CENTRAL LINE TO RIJ PATENT AND SALINE LOCKED. NIXON DRAINING TO GRAVITY. BED LOW AND LCOKED. AWAITING TRANSFER TO MEDICAL FLOOR ROOM 309.
--- NOTE | 2024-06-12 20:31 | NUR ---
TRANSFER TO MEDICAL" PT TAKEN TO ROOM 309 BY BED AT 2014. ALL BELONGINGS SENT WITH PT. REPORT GIVEN TO NAVEEN.
--- NOTE | 2024-06-12 23:46 | NUR ---
TRANSFER FROM ICU/SHIFT SUMMARY/ COMFORT CARE NOTE @2004 REPORT RECEIVED FROM DOUGLAS NUNO @ICU. @2019 PT TRANSFERRED FROM ICU TO MEDICAL FLOOR. PT WAS TRANSFERRED TO HOSPITAL BED WITH 4-PERSON ASSIST.USING A LIFT SHEET. PT IS 3 PERSON ASSIST TO REPOSITION. PT IS COMFORT CARE MEASURES ONLY. PLEASE CALL [facility] FOR TIME OF WHEN APPROPRIATE: [phone]. PER ICU NURSE, PT DOES NOT HAVE CLOSE RELATIVES THAT SHE STAYS IN CONTACT, NIECE, UNKNOWN LOCATION. PT HAS HER WALLET AND CLOTHING IN THE PT BELONINGS BAG. ALSO A BIBLE. PT RESPONS TO PAIN ONLY WHEN REPOSITIONED. RR UNEVEN LABORED. RR 10/MIN. ATROPINE AND MORPHINE IV ADMIN ORDERED AT HS. BED AT THE LOWEST POSITION, CALL LIGHT WITHIN REACH. MEDICATED FOR COMFORT PER EMAR.
--- NOTE | 2024-06-13 12:04 | NUR ---
0700, RESTING PEACEFULLY, RESP 10, H/R IRREG. 0800, RESTING PEACEFULLY, RESP 8, H/R IRREG, 0915, RESTING PEACEFULLY, RESP 8, H/R IRREG. 10:50, RESTING NOW, PREMEDICATING FOR TURNS, CHANGES. RESP 8, H/R IRREG. 1200, RESTING PEACEFULLY, RESP 8, H/R IRREG.
--- NOTE | 2024-06-13 13:02 | NUR ---
PT RESP 8, IRREGULAR. HR IRREG. RESTING PEACEFULLY AT THIS TIME.
--- NOTE | 2024-06-13 13:26 | NUR ---
PT RESTING, RESP EASY, UNLABORED, IRREGULAR. RDATE 8. H/R IRREG.
--- NOTE | 2024-06-13 16:44 | NUR ---
Spiritual care Consult received, chart reviewed and discussion held patient's RN, Jaylen. Upon seeing that the Consult note stated that the "family had requested Last Rights," I visited the patient. Patient is minimally responsive. Patient did not repsond to questions except to attempt to look my direction. She nodded affirmingly and purposefully when I asked if I could say a prayer for her. I prayed an EoL, last rites prayer and at it's conclusion patient again appeared to be trying to get her eyes to look my direction by turning her head toward me but her eyes did not focus or stay open. I will continue to remain available to the patient
--- NOTE | 2024-06-13 17:50 | NUR ---
PT RESP GURGLEY. ATROPINE GIVEN. ALSO, OCCATIONALLY GASPING, WORKING, ROXANOL GIVEN FOR COMFORT
--- NOTE | 2024-06-13 18:31 | NUR ---
PT NONRESPONDANT FOR ME TODAY. COMFORT CARE. RESP SLOWING DOWN AND MORE APNIC BETWEEN RESP. DID MEDICATE FOR AIR HUNGER AND FOR PRIOR TO TURNING. GAVE ATROPINE DROPS TO DRY AIRWAY TODAY ALSO. OTHERWISE HAS RESTED COMFORTABLY T/O MOST OF DAY. BED IN LOW POSITION, CALL LITE IN REACH, BED ALARM ON FOR SAFETY
--- NOTE | 2024-06-14 04:20 | NUR ---
SHIFT SUMMARY: Pt is admitted for sepsis and is a DNR. is on comfort care. Is alert to self with painful stimulus. ADLs have been 2p through shift. No pain or discomfort noted through shift. Breathing has been shallow with periods of apnea. Folly is intact draining clear elvira urine in small amounts.
--- NOTE | 2024-06-14 11:08 | NUR ---
ORAL CARE DONE
--- NOTE | 2024-06-14 16:15 | NUR ---
1530 GAVE 10 MG ROXANOL PRIOR TO TURNING PT. 1545 GAVE ADDL 10 MG ROXANOL DURING TURN FOR PAIN.
--- NOTE | 2024-06-14 16:27 | NUR ---
Pt's respirations are shallow with audible wheezing and rhonchi noted. Pt is imminent, unsafe for discharge.
--- NOTE | 2024-06-14 17:04 | NUR ---
PT CONTINUES ON COMFORT CARE. SHE DOES NOT RESPOND TO ME EXCEPT WHEN TURNING AND CALLS OUT WITH PAIN. PREMEDICATE FOR TURNS. ATROPINE DROPS TO ASSIST WITH DRYING SECRETIONS. SUCTION REGULARLY. RESP ABOUT 6-8, H/R IS IRREGULAR. PT RESTS COMFORTABLY AND QUIETLY AT THIS TIME. BED IN LOW POSITION, CALL LITE IN REACH. BED ALARM ON FOR SAFETY
== END 2024-06-14 18:37 | DRG 871 ==
LOC: ER 09:18 → ICUE 11:31 → ERHOLD 11:31 → MEDS 11:31 → ICUE 14:59 → MEDS 06-12 20:24
PROVIDERS: Emergency Medicine; Internal Medicine; ADMIT Family Medicine
PROC: 3E033XZ Introduction of Vasopressor into Peripheral Vein, Percutaneous Approach (ICD-10-PCS; principal; 2024-06-08)
PROC: 3E03329 Introduction of Other Anti-infective into Peripheral Vein, Percutaneous Approach (ICD-10-PCS; 2024-06-08)
PROC: 5A09357 Assistance with Respiratory Ventilation, Less than 24 Consecutive Hours, Continuous Positive Airway Pressure (ICD-10-PCS; 2024-06-08)
PROC: 02HV33Z Insertion of Infusion Device into Superior Vena Cava, Percutaneous Approach (ICD-10-PCS; 2024-06-08)
PROC: 0T9B70Z Drainage of Bladder with Drainage Device, Via Natural or Artificial Opening (ICD-10-PCS; 2024-06-08)
DX: A40.8 Other streptococcal sepsis (principal); R65.21 Severe sepsis with septic shock; I50.32 Chronic diastolic (congestive) heart failure; N17.9 Acute kidney failure, unspecified; L03.115 Cellulitis of right lower limb; E87.20 Acidosis, unspecified; Z68.42 Body mass index [BMI] 45.0-49.9, adult; Z66 Do not resuscitate; Z51.5 Encounter for palliative care; I48.91 Unspecified atrial fibrillation; J45.909 Unspecified asthma, uncomplicated; E66.9 Obesity, unspecified; E78.5 Hyperlipidemia, unspecified; I11.0 Hypertensive heart disease with heart failure; I27.20 Pulmonary hypertension, unspecified; I87.2 Venous insufficiency (chronic) (peripheral); Z91.018 Allergy to other foods; Z79.01 Long term (current) use of anticoagulants; Z79.899 Other long term (current) drug therapy; Z88.8 Allergy status to other drugs, medicaments and biological substances
CPT/HCPCS: 36415; 36556; 51702; 71045; 73590; 73700; 80053; 80069; 80202; 81001; 82330; 82803; 82947; 83605; 83735; 83880; 84100; 84145; 85025; 85610; 87040; 87086; 87147; 87428-QW; 87493; 93005; 93010; 93306; 93308; 93321; 94640; 94660; 94664; 94760; 94762; 96365-59; 99285-25; A9270; C1751; J1171; J1720; J1940; J2270; J2405; J2540; J2543; J3010; J3370; J3475; J3480; J7030; J7040; J7042; J7050; J7060; J7120